=== PATIENT | female | born 1960 | race Caucasian/White ===

== ENCOUNTER 2017-03-07 13:59 | Emergency (ER) | payer OTHER ==
[~2017-03-07] VITALS: Ht 160 cm; Wt 71.2 kg
[2017-03-07 14:05] VITALS: Ht 160 cm; Wt 71.2 kg
[2017-03-07 15:19] LABS: PLATELET COUNT 212 x10^3mcL (130-400); RED CELL DISTRIBUTION WIDTH 19.7 % (11.5-14.5)
[2017-03-07 15:20] LABS: BASOPHIL % 1.1 % (0-2)
[2017-03-07 15:23] LABS: CALCIUM 8.7 mg/dL (8.5-10.1); CARBON DIOXIDE 21.7 mmol/L (21-32); CHLORIDE SERUM 103 mmol/L (98-107); CREATININE SERUM 0.8 mg/dL (0.6-1.0); GFR1 > 60 mL/min; GLUCOSE SERUM 83 mg/dL (74-106); POTASSIUM SERUM 3.1 mmol/L (3.5-5.1); SODIUM SERUM 141 mmol/L (136-145)
[2017-03-07 15:27] LABS: ALKALINE PHOSPHATASE 251 U/L (46-116); ALT/SGPT 47 U/L (14-59); AST/SGOT 138 U/L (15-37); BILIRUBIN TOTAL 0.9 mg/dL (0.20-1.00); CHOLESTEROL 200 mg/dL (<200)
[2017-03-07 15:30] LABS: TOTAL PROTEIN, SERUM 8.9 g/dL (6.4-8.2)
[2017-03-07 15:58] LABS: AMPHETAMINE QUAL UR NONE DETECTED (NEG <=1000)
[2017-03-07 17:22] VITALS: BP 141/77
== END 2017-03-07 17:22 | disposition home or self-care (01) ==
LOC: ED 13:59
PROVIDERS: Specialist
DX: F10.229 Alcohol dependence with intoxication, unspecified (principal); F17.210 Nicotine dependence, cigarettes, uncomplicated; E46 Unspecified protein-calorie malnutrition; I10 Essential (primary) hypertension; Z87.19 Personal history of other diseases of the digestive system
CPT/HCPCS: 83880; G0480; J3411; J3475; J3490; Q0092

== ENCOUNTER → 2017-07-19 | Outpatient (CLI) | payer MEDICAID | END | disposition home or self-care (01) | LOC: US 08:23 | PROC: BW40ZZZ Ultrasonography of Abdomen (ICD-10-PCS; principal; 2017-07-19) | DX: K70.30 Alcoholic cirrhosis of liver without ascites (principal) ==

== ENCOUNTER → 2017-08-22 | Outpatient (CLI) | payer MEDICAID ==
[2017-08-18 13:06] LABS: ALBUMIN 3.7 g/dL (3.4-5.0); ALKALINE PHOSPHATASE 140 U/L (46-116); ALT/SGPT 39 U/L (14-59); AST/SGOT 37 U/L (15-37); BILIRUBIN TOTAL 0.55 mg/dL (0.20-1.00); CALCIUM 8.9 mg/dL (8.5-10.1); CARBON DIOXIDE 26.1 mmol/L (21-32); CHLORIDE SERUM 110 mmol/L (98-107); GFR1 > 60 mL/min; GLUCOSE SERUM 109 mg/dL (74-106); POTASSIUM SERUM 4.5 mmol/L (3.5-5.1); SODIUM SERUM 146 mmol/L (136-145); TOTAL PROTEIN, SERUM 7.6 g/dL (6.4-8.2)
== END | disposition home or self-care (01) ==
LOC: CT 12:28
PROVIDERS: Family Medicine
PROC: BW201ZZ Computerized Tomography (CT Scan) of Abdomen using Low Osmolar Contrast (ICD-10-PCS; principal; 2017-08-22)
DX: R16.0 Hepatomegaly, not elsewhere classified (principal)
CPT/HCPCS: Q9967

== ENCOUNTER 2018-01-07 15:11 | Inpatient (IN) | payer OTHER ==
[~2018-01-07] VITALS: Ht 165.1 cm; Wt 61.5 kg
[2018-01-07 16:12] LABS: BASOPHIL % 0.3 % (0-2); RED CELL DISTRIBUTION WIDTH 13.7 % (11.5-14.5)
[2018-01-07 16:16] LABS: PLATELET COUNT 122 x10^3mcL (130-400)
[2018-01-07 16:24] LABS: CALCIUM 9.1 mg/dL (8.5-10.1); CARBON DIOXIDE 21.4 mmol/L (21-32); CHLORIDE SERUM 105 mmol/L (98-107); GFR1 > 60 mL/min; GLUCOSE SERUM 138 mg/dL (74-106); POTASSIUM SERUM 3.9 mmol/L (3.5-5.1); SODIUM SERUM 139 mmol/L (136-145)
[2018-01-07 16:28] LABS: ALBUMIN 4.3 g/dL (3.4-5.0); ALKALINE PHOSPHATASE 168 U/L (46-116); ALT/SGPT 39 U/L (14-59); AST/SGOT 28 U/L (15-37); CHOLESTEROL 175 mg/dL (<200); HDL CHOLESTEROL 47 mg/dL (40-60)
[2018-01-07 16:31] LABS: TOTAL PROTEIN, SERUM 8.6 g/dL (6.4-8.2)
[2018-01-07 17:52] LABS: microscopic required? YES; urine erythrocyte TRACE (NEGATIVE)
[2018-01-07 18:01] LABS: AMPHETAMINE QUAL UR NONE DETECTED (See below)
[2018-01-07] MEDS ORDERED: NEU300 (18:06)
[2018-01-07] MEDS ORDERED: LASIX20 MG PO (18:07)
[2018-01-07] MEDS ORDERED: TRAZODONE50 M1 PO (18:07)
[2018-01-07] MEDS ORDERED: PROPRANOLOL HCL40 MG PO (18:08)
[2018-01-07 19:22] VITALS: BP 125/75
[2018-01-07 20:48] VITALS: BP 113/80
[2018-01-08 05:20] VITALS: BP 112/61
[2018-01-08 07:45] LABS: T4(THYROXINE) 8.9 ug/dL (4.7-13.3)
[2018-01-08 08:50] VITALS: BP 115/75
[2018-01-08 09:00] LABS: BASOPHIL % 1.3 % (0-2); RED CELL DISTRIBUTION WIDTH 13.5 % (11.5-14.5)
[2018-01-08 09:12] LABS: PLATELET COUNT 106 x10^3mcL (130-400)
[2018-01-08 10:07] LABS: ERYTHROCYTE SED RATE 19 mm/hr (0-30)
[2018-01-08 12:48] VITALS: BP 120/72
[2018-01-08 17:20] VITALS: BP 102/63
[2018-01-08 19:30] VITALS: BP 98/61
[2018-01-09 05:34] VITALS: BP 95/59
[2018-01-09 05:46] VITALS: BP 95/59
[2018-01-09 06:27] LABS: RAPID PLASMA REAGIN Non Reactive (Non Reactive)
[2018-01-09 09:20] LABS: RHEUMATOID ARTHRITIS FACTOR <10.0 IU/mL (0.0-13.9)
[2018-01-09 10:18] VITALS: BP 98/67
[2018-01-09 12:52] VITALS: BP 103/59
[2018-01-09 15:18] VITALS: BP 103/59
== END 2018-01-09 16:25 | disposition short-term general hospital (02) | DRG 52 ==
LOC: ED 15:11 → DU 18:09
PROVIDERS: Emergency Medicine; Internal Medicine
DX: G93.41 Metabolic encephalopathy (principal); F10.10 Alcohol abuse, uncomplicated; G40.909 Epilepsy, unspecified, not intractable, without status epilepticus; R11.2 Nausea with vomiting, unspecified; F17.210 Nicotine dependence, cigarettes, uncomplicated
CPT/HCPCS: 86431; G0480; J2405; J3370; J3490; J7030; Q0092